=== PATIENT | female | born 1965 | race Asian ===

== ENCOUNTER 2024-07-05 09:52 | Outpatient (AMB) | payer OTHER, SELFPAY ==
--- NOTE | 2024-07-05 09:52 | MHC.OFFVIS ---
Vital Signs 07/05/24 10:04 Height 5 ft 2 in Weight 121 lb 11.123 oz BMI 22.3 BP 160/98 H Blood Pressure Location Lt radial Position Sitting Pulse 66 Pulse Source Pulse Oximeter Pulse Oximetry (%) 99 Oxygen Delivery Method Room Air Intake Visit Reasons: Hyperlipidemia, colo consult Intake Note: Alana presents in office today for a scheduled colo consult. CC; Pt denies any sx or concerns that would otherwise warrant a colonoscopy. Pt denies any previous hx of colo procedure. This will be an initial / routine colo. Paving Block Cutter Required: Yes Paving Block Cutter Services: Paving Block Cutter Offered & Declined Paving Block Cutter Name: Family Information Interpreted: non-clinical & clinical Accompanied by: Daughter Allergies No Known Allergies Allergy (Verified 07/05/24 10:03) Medication List - Last Reconciled 07/05/24 by ANSHUL Pozo multivitamin 1 tab PO DAILY HPI HPI Hyperlipidemia, colo consult: Details: 58 year old? female with past medical history of hyperlipidemia this here today for pre colonoscopy screening.? Patient was sent to us by her PCP.? This is her first colonoscopy screening.? Patient denies any gastrointestinal symptoms in the past or at present.? Denies any personal or family history of gastrointestinal disease, colon polyps, or CRC.? Denies history of difficulty with sedation or anesthesia in the past.? Negative for history of sleep apnea.? Denies any history of cardiac, renal, pulmonary, or hepatic disease.?? No history of infectious? diseases like hepatitis A, B, C, HIV or tuberculosis.? Patient is not on any anticoagulation PFSH Medical History (Updated 07/05/24 @ 10:27 by ANSHUL Pozo) Hyperlipidemia Surgical History (Updated 07/05/24 @ 10:01 by ANAYA De Paz) H/O: hysterectomy (~2021) Nose septum deviation (~02/2024) Family History (Updated 07/05/24 @ 10:02 by ANAYA De Paz) Brother Stroke Hypertension Father Stroke Social History Alcohol intake: never Patient Tobacco Use Status: Never used Tobacco Review of Systems Const Denies weight gain and Denies weight loss ENT Reports no additional complaints, Denies dysphagia and Denies odynophagia Card Reports no additional complaints Resp Reports no additional complaints GI Denies abdominal pain, Denies belching, Denies melena, Denies bloating, Denies change in bowel habits, Denies dysphagia, Denies excessive flatus, Denies dyspepsia, Denies heartburn, Denies diarrhea, Denies loose stools, Denies nausea, Denies odynophagia and Denies vomiting Musc Reports no additional complaints Neuro Reports no additional complaints Psych Reports no additional complaints Endo Reports no additional complaints Physical Exam Vital Signs: Last Vital Signs Pulse 66 07/05/24 10:04 BP 160/98 H 07/05/24 10:04 Pulse Ox 99 07/05/24 10:04 Oxygen Delivery Method Room Air 07/05/24 10:04 BMI result Body Mass Index 22.3 Const General: healthy appearing, no acute distress and well developed Nutritional Appearance: well nourished Orientation/consciousness: patient oriented x3 Resp Effort & Inspection: normal respiratory effort, able to speak in complete sentences, no tracheal deviation and symmetric chest movement Auscultation: clear to auscultation bilaterally Cardio Rate: regular rate GI Inspection: Yes normal to inspection and No distended Palpation (GI): Soft to palpation, not firm, nontender and No hepatosplenomegaly present Auscultation: normal bowel sounds General: Yes no CVA tenderness Back/Spine/Pelvis Back: no CVA tenderness Skin General skin exam: elasticity normal, turgor normal and dry skin Neuro General: patient oriented x3 Psych Appearance: grossly normal Mental Status: mental status grossly normal Assessment & Plan Assessment & Plan (1) Screen for colon cancer: Code(s): Z12.11 - Encounter for screening for malignant neoplasm of colon Plan Patient denies any GI, cardiac or respiratory symptoms.? Denies any issues with anesthesia in the past.? Denies any history of sleep apnea.? No history infectious diseases in the past or present.? Not on any anticoagulation therapy.? No family or personal history of colon cancer or polyps.? Patient denies melena, hematochezia, unintentional weight loss or ribbon like stools.? Discussed at length the pre-procedure,? prep, diet & medications as well as what to expect prior, during and after the procedure.?? Stressed the importance of good bowel prep.? Recommended the use of Vaseline or Calmoseptine OTC & baby wipes with bowel movements to promote comfort.? ?Patient verbalizes understanding and agrees to plan of care.? She was given the opportunity to ask questions and all questions answered.? We will see her after the procedure.? Medications: New bisacodyl (Dulcolax (bisacodyl)) take 4 tabs at noon the day before your colonoscopy 20 mg (4 x 5 mg) PO ONCE 1 day 4 tabs 0RF Z12.11 - Encounter for screening for malignant neoplasm of colon polyethylene glycol 3350 (Miralax) As directed by gastroenterology department at [facility] 238 grams PO ONCE 238 grams 0RF Z12.11 - Encounter for screening for malignant neoplasm of colon Coding Level of Care Code New Pt Level 3 (99912) Diagnoses Screen for colon cancer Z12.11 Time Spent (min) 40 Comment 30 minutes spent with patient and additional 10 minutes spent reviewing her records
[2024-07-05 10:04] VITALS: BP 160/98; PULSE 66; O2SAT 99; BMI 22.3
== END 2024-07-05 10:31 | disposition home or self-care (01) ==
PROVIDERS: PCP Hospitalist; Visit Provider Nurse Practitioner Family
DX: Z12.11 Encounter for screening for malignant neoplasm of colon (principal); Z01.818 Encounter for other preprocedural examination
CPT/HCPCS: 99203

== ENCOUNTER → 2024-07-05 09:52 | Outpatient (BNVA) | payer OTHER, SELFPAY | PROVIDERS: PCP Hospitalist; Visit Provider Nurse Practitioner Family ==

== ENCOUNTER 2024-12-05 10:06 | Day surgery (SDC) | payer OTHER, SELFPAY ==
[2024-12-01 13:46] VITALS: BMI 22.3
[2024-12-05 10:30] VITALS: BP 120/87; PULSE 83; RESP 18; TEMP 36.7; O2SAT 96
[2024-12-05] MEDS: Lactated Ringers 1,000 ML 80 ML IVCONT (10:33)
--- NOTE | 2024-12-05 10:40 | MHC.SHP ---
Pre-Procedural Eval Section A - 24 Hr Update-Section A only Date of Service: 12/05/24 Section B - Complete if H&P > 30 days Chief Complaint: Encounter for screening for malignant neoplasm of Details of Present Illness: Hyperlipidemia Surgical History (Updated 07/05/24 @ 10:01 by Emil[facility] Plasencia [facility] H/O: hysterectomy (~2021) Nose septum deviation (~02/2024) Present Medications: see Short Stay Collaborative assessment Allergies: Allergies Allergy/AdvReac Type Severity Reaction Status Date / Time No Known Allergies Allergy Verified 12/05/24 10:31 Review of Systems Review of Systems Comment: Ten point ROS negative Exam Exam Comment: Gen appear: No acute distress HEENT: no icterus Chest: No overt resp distress Abd: soft, nontender, nondistended Psych: Stable affect, answering questions appropriately Neuro: A/Ox3 noted to move all extremities spontaneously Ext: no peripheral edema Plan Diagnosis/Plan: Unchanged I have reviewed the history and physical and performed a pertinent physical examination on my patient. No changes have occurred unless specified. 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
--- NOTE | 2024-12-05 11:05 | P.CONAN_ITS ---
HPI - Anesthesia Eval Consult details Narrative: 59 F for colonoscopy FOR[facility]LY [facility] Past Medical History Medical History Seasonal allergic rhinitis Hyperlipidemia Family History Family History (Updated 07/05/24 @ 10:02 by ANAYA De Paz) Brother Stroke Hypertension Father Stroke Family history of problems with anesthesia: No Surgical History Surgical History H/O: hysterectomy (~2021) Nose septum deviation (~02/2024) History of Problems with Anesthesia: No Social History Social History (Updated 07/05/24 @ 10:02 by ANAYA De Paz) Are you a primary respiratory care program director to a significant other at home: No Do you presently have visiting nurse or other home services: No Alcohol intake: never Patient Tobacco Use Status: Never used Tobacco Have you been hit, kicked, punched, or otherwise hurt by someone within the past year? If so, by whom?: No Are you DNR?: No Advance Directives: No Advance Directives Information Provided: Yes Recently lost weight without trying: No Nutrition Risks: No Nutritional Risk Meds Allergies Allergy/AdvReac Type Severity Reaction Status Date / Time No Known Allergies Allergy Verified 12/05/24 10:31 Active Medications: Current Medications Lactated Ringer's (Lr) 1,000 mls @ 80 mls/hr IVCONT .[id number] Last Admin: 12/05/24 10:33 Dose: 80 mls/hr Home Medications ?Medication ?Instructions ?Recorded ?Confirmed ?Last Taken ?Type multivitamin 1 tab PO DAILY 07/05/24 12/05/24 Unknown History Exam Height,Weight and Vital Signs: Height 5 ft 2 in Weight 121 lb 11 oz Last Vital Signs Temp 98.1 F 12/05/24 10:30 Pulse 83 12/05/24 10:30 Resp 18 12/05/24 10:30 BP 120/87 12/05/24 10:30 Pulse Ox 96 12/05/24 10:30 O2 Del Method Room Air 12/05/24 10:30 Airway Mallampati Class: II TM Dist: >3cm Neck ROM: Full Loose/Missing/Broken Teeth: Yes Assessment and Plan Assessment Anesthesia Assessment: Anesthesia Plan Discussed and Chart Reviewed Final Anesthetic Review Family History of Problems with Anesthesia: No History of Problems with Anesthesia: No NPO: Yes ASA Class: II Final Preanesthetic Review: No Changes in Pt Med Stat, Meds/Allgs Chart Reviewed, Consent Obtained/Reviewed and Anes Risks/Benef Reviewed Patient Risk: Low Procedure Risk: Low Anesthetic Plan Anesthetic Plan: MAC: Disposition: Standard PACU
[2024-12-05 11:15] VITALS: BP 108/73; PULSE 76; RESP 16; TEMP 37.1; O2SAT 100
--- NOTE | 2024-12-05 11:15 | P.OPN-COLO_ITS ---
Colonoscopy Operative Note Operative Note Date of Service: 12/05/24 Narrative: Procedure: Colonoscopy Indication: Screening Endoscopist: Lore Mata MD Anesthesia Provider: Dr John Roper Anesthesia type: MAC Instrument: Olympus [id number]-[id number] Consent: Indication, risks vs benefits, and alternatives were discussed with the patient who gave written informed consent to proceed. A [place] per diem interpreter was utilized to assist with the consent. EKG, pulse, pulse oximetry and blood pressure were monitored throughout the procedure. Please see anesthesia flowsheet. Procedure: The patient was brought to the procedure room and placed in the left lateral decubitus position. IV medications were administered by the anesthesia provider in attendance. A digital rectal exam was performed which was normal. A distal attachment cap was affixed to the tip of the colonoscope which was then inserted through the anus and advanced through the colon to the cecum at 75 cm,and terminal ileum. Appendiceal orifice and ileocecal valve were identified. Mucosa was carefully examined under high definition white light as the instrument was slowly withdrawn in a retrograde panoramic fashion. Retroflexion was performed in rectum. The procedure was not difficult. There were no immediate obvious complications. The quality of the prep was BBPS: 3+2+3 = adequate Withdrawal time 7 minutes. Limitations: No limitations. Findings: Mucosa: Normal to cecum and terminal ileum. Protruding lesions: * 1 sessile polyp of size 8 mm in descending colon. Cold snare polypectomy was performed. The polyp was completely removed and retrieved. * 1 sessile polyp of size 5 mm in transverse colon. Cold snare polypectomy was performed. The polyp was completely removed and retrieved. * Medium internal hemorrhoids without stigmata of recent bleeding. Impression: 1. Normal colon mucosa 2. Total of 2 polyps removed 3. Internal hemorrhoids Recommendations: - Follow path results. - Repeat colonoscopy in 5-7 years if polyps are adenomas.
[2024-12-05 11:30] VITALS: BP 134/66; PULSE 64; RESP 20; TEMP 36.4; O2SAT 95
--- OUTSIDE RECORDS SUMMARY | 2024-12-05 12:00 | XMS_ITS ---
Author Organization [facility] Address [address] [place] [address] Care Team Providers Care Industrial Renderer Name Role Phone ANNE FOREMAN Unavailable [phone] Allergies No Known Allergies Reason For Referral Reason colonoscopy- [place] Diagnosis 1 Encounter for genera l adult medical examination without abnormal findings (Z00.00) Referral Organization [facility] Referring Provider First Name ANNE Referring Provider Last Name KELLEN Referring Provider Speciality Internal M edicine Referred Provider Specialty Gastroentero logy General Notes Referral faxed to [facility] Gastroenterology F: : [phone]. Please contact patient for scheduling Referral Priority Routine Medications Medication SIG (Take, Route, Frequency, Duration) Notes Start Date End Date Status Collagen Active Flonase Allergy Relief 50 MCG/ACT 1 spray in each nostril Nasally Once a day for 30 day(s) 01/20/2023 Not-Taking [place] 3 Active Levocetirizine Dihydrochloride 5 MG 1 tablet in the evening Orally Once a day for 30 day(s) 01/20/2023 Not-Taking Triamcinolone Acetonide 0.5 % 1 application Externally Twice a day for 30 days 01/25/2024 Active Social History Tobacco Use: Social History Observation Description Date Details (start date - stop date) Never Smoker NA - NA Tobacco Use/Smoking Question Answer Notes Are you a nonsmoker Alcohol Screen (Audit-C) Question Answer Notes Did you have a drink containing alcohol in the p ast year? No Points 0 Interpretation Negative Vital Signs Temperature 97.2 degrees Fahrenheit 01/25/20 Oximetry 96 % 01/25/2024 Heart Rate 86 /min 01/25/2024 Blood pressure systolic 122 mm Hg 01/25/20 24 Blood pressure diastolic 84 mm Hg 024 Weight 122.1 lbs 01/25/2024 Encounters Encounter Location Date Provider Diagnosis [facility] [address] [address] 01/25/2024 ANNE FOREMAN Mixed hyperlipidemia E78.2 ; Encounter for general adult medical examination without abnormal findings Z00.00 ; Other seasonal allergic rhinitis J30.2 and Dermatitis, unspecified L30.9 Assessments Encounter Date Diagnosis (ICD Code) Assessment Notes Treatment Notes Treatment Clinical Notes Section Notes 01/25/2024 Mixed hyperlipidemia (ICD-10 - E78.2) Mrs. Prescott is a 58 year old [place]alander-speakin g lady with hyperlipidemia here for annual physical. Plan is as follows: Mixed hyperlipidemia. Total cholesterol 206 and triglyceride 168. Dietary restrictions advised. Seasonal allergies. Continue Levocetirizine 5 MG daily and Flonase nasal spray. Dermatitis. Start Triamcinolone Acetonide Ointment twice a day. Eye screening. She sees her trial court justice regularly. Dental screening. She sees dentist regularly. Breast cancer screening. Ordered mammogram. Colon cancer screening. Referred to GI for colonoscopy. Immunizations. She is up-to-date on her COVID, TDAP and influenza vaccinations. Screening blood work before next appointment. General health concerns discussed with patient. Scribe services used to formulate this note under HIPAA compliance and under [place] law mandated for scribe services. Patient aware of service. Verbal consent and written consent taken from the patient. Patient understands and verbalizes understanding of the scribes services and all questions answered regarding scribes services. Patient agrees to use of scribes services. 01/25/2024 Encounter for general adult medical examination without abnormal findings (ICD-10 - Z00.00) Mrs. Prescott is a 58 year old [place] Zealander-speakin g lady with hyperlipidemia here for annual physical. Plan is as follows: Mixed hyperlipidemia. Total cholesterol 206 and triglyceride 168. Dietary restrictions advised. Seasonal allergies. Continue Levocetirizine 5 MG daily and Flonase nasal spray. Dermatitis. Start Triamcinolone Acetonide Ointment twice a day. Eye screening. She sees her trial court justice regularly. Dental screening. She sees dentist regularly. Breast cancer screening. Ordered mammogram. Colon cancer screening. Referred to GI for colonoscopy. Immunizations. She is up-to-date on her COVID, TDAP and influenza vaccinations. Screening blood work before next appointment. General health concerns discussed with patient. Scribe services used to formulate this note under HIPAA compliance and under [place] law mandated for scribe services. Patient aware of service. Verbal consent and written consent taken from the patient. Patient understands and verbalizes understanding of the scribes services and all questions answered regarding scribes services. Patient agrees to use of scribes services. 01/25/2024 Other seasonal allergic rhinitis (ICD-10 - J30.2) Mrs. Prescott is a 58 year old [place] Zealander-speakin g lady with hyperlipidemia here for annual physical. Plan is as follows: Mixed hyperlipidemia. Total cholesterol 206 and triglyceride 168. Dietary restrictions advised. Seasonal allergies. Continue Levocetirizine 5 MG daily and Flonase nasal spray. Dermatitis. Start Triamcinolone Acetonide Ointment twice a day. Eye screening. She sees her trial court justice regularly. Dental screening. She sees dentist regularly. Breast cancer screening. Ordered mammogram. Colon cancer screening. Referred to GI for colonoscopy. Immunizations. She is up-to-date on her COVID, TDAP and influenza vaccinations. Screening blood work before next appointment. General health concerns discussed with patient. Scribe services used to formulate this note under HIPAA compliance and under [place] law mandated for scribe services. Patient aware of service. Verbal consent and written consent taken from the patient. Patient understands and verbalizes understanding of the scribes services and all questions answered regarding scribes services. Patient agrees to use of scribes services. 01/25/2024 Dermatitis, unspecified (ICD-10 - L30.9) Mrs. Prescott is a 58 year old [place] Zealander-speakin g lady with hyperlipidemia here for annual physical. Plan is as follows: Mixed hyperlipidemia. Total cholesterol 206 and triglyceride 168. Dietary restrictions advised. Seasonal allergies. Continue Levocetirizine 5 MG daily and Flonase nasal spray. Dermatitis. Start Triamcinolone Acetonide Ointment twice a day. Eye screening. She sees her trial court justice regularly. Dental screening. She sees dentist regularly. Breast cancer screening. Ordered mammogram. Colon cancer screening. Referred to GI for colonoscopy. Immunizations. She is up-to-date on her COVID, TDAP and influenza vaccinations. Screening blood work before next appointment. General health concerns discussed with patient. Scribe services used to formulate this note under HIPAA compliance and under [place] law mandated for scribe services. Patient aware of service. Verbal consent and written consent taken from the patient. Patient understands and verbalizes understanding of the scribes services and all questions answered regarding scribes services. Patient agrees to use of scribes services. Plan Of Treatment Medication Medication Name Sig Start Date Stop Date Notes Triamcinolone Acetonide 0.5 % 1 applicat ion Externally Twice a day for 30 days 01/25/2024 Future Test Test Name Order Date MAMMOGRAM, SCREENING 01/25/2024 Lipid Panel-[id number] 01/25/2024 Comp. Metabolic Panel [id number] 2023 Referrals Referral Date Details 01/25/2024 01/25/2024, colonosc opandrew- [facility] Next Appt Details Follow Up: 1 Year- Shikha POOL n: Provider Name:ANNE FOREMAN , 01/25/2025 03:30:00 PM, [address] [place] [address], [phone], Progress Notes * GENIE BRANDON WHEELERDOB:[birth year] (58 yo F)Acc No.[id number]:01/25/2024 Progress Notes Patient:?GENIE BRANDON WHEELER Provider:?ANNE FOREMAN MD :1965???Age:58 Y???Sex:Female D ate:01/25/2024 Address:[address] [place] [id number] Subjective: * Chief Complaints: * ??? * HPI: ???Internal Medicine:? Mrs. Prescott is a 58 year old [place]ander-speaking lady with hyperlipidemia here for annual physical. Vision and hearing are stable. She is physically active and walks as much as she can. She gained 3 lbs since last visit. She does not appear anxious or depressed. She sleeps well, appetite is good. No GI or symptoms. She denies any other active issues or concerns. * ROS:?General/Constitutional:?Overall health?Good.?Change in appetite?denies.?Chills?denies.?Fever?denies.?Night sweats?denies.?Sleep disturbance?denies.?Weight gain?denies.?Weight loss?denies.?Neurologic:?Difficulty speaking?denies.?Dizziness?denies.?Gait abnormality?denies.?Headache?denies.?Loss of strength?denies.?Memory loss?denies.?Seizures?denies.?Tingling/Numbness?denies ?.?Ophthalmologic:?Blurred vision?denies.?Discharge?denies.?Dry eye?denies.?Red eye?denies.?ENT:?Change in Voice?Denies.?Cold Symptoms?Denies.?Cough?Denies.?Dizziness?Denies.?Nasal Congestion?Denies.?Otalgia?Denies.?postnasal drip?, Denies.?Blocked ear?denies.?Nosebleed?denies.?Snoring?denies.?Cardiovascular:?Diaphoresis?Denies.?Pedal Edema?Denies.?PND (Paroxsymal nocturnal dyspnea)?Denies.?Chest pain?denies.?Difficulty laying flat?denies.?Dyspnea on exertion?denies.?Heart murmur?denies.?Orthopnea?denies.?Respiratory:?Snoring?denies.?Asthma?denies.?Cough?denies.?Shortness of breath with exertion?denies.?Sputum production?denies.?Wheezing?denies.?Gastrointestinal:?Change in bowel habits?denies.?Constipation?denies.?Decreased appetite?denies.?Diarrhea?denies.?Heartburn?, denies.?Nausea?denies.?Vomiting?denies.?Musculoskeletal:?tingling/numbness?Denies.?myalgias?Denies.?Joint Swelling?Denies.?extremeties?normal.?Arthritis?denies.?Back problems?denies.?Carpal tunnel?denies.?Joint stiffness?denies.?Muscle aches?denies.?Endocrine:?Bowel Changes?Denies.?Breast Discharge?Denies.?poor libido?Denies.?Cold intolerance?denies.?Excessive sweating?denies.?Excessive thirst?denies.?Frequent urination?denies.?Thyroid problems?denies.?Skin:?Bruising?Denies.?Eczema?denies.?Hair changes?denies.?Rash?,admits.?Skin lesion(s)?denies.?Psychiatric:?Anxiety?denies.?Depressed mood?denies.?Difficulty sleeping?denies.?Nervous breakdown?denies.?Substance abuse?denies.?Urology:?abnormal menstrual bleeding?denies.?blood in urine?denies.?burning on urination?denies.?difficulty urinating?denies.?discharge?denies.?dysuria?denies.? * Medical History:? * Surgical History:?uterine fi broid * Hospitalization/Major Diagno stic Procedure:?Denies Past Hospitalization * Family History:?Father: diag nosed with Hypertension, Stroke.?Siblings: diagnosed with Hypertension, Stroke.? * Social History:?Tobacco Use:?Tobacco Use/Smoking?Are you a?nonsmoker ???Drugs/Alcohol:?Alcohol Screen (Audit-C)?Did you have a drink containing alcohol in the past year??No ?Points?0 ?Interpretation?Negative ?Do you smoke marijuana?: no. ???Miscellaneous:?Children: 3. ?Exercise: no. ?Marital status: . 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 * Medications:?TakingCollagen [place] 3 Taking Collagen Taking [place] 3 Not- TakingFlonase Allergy Relief 50 MCG/ACT Suspension 1 spray in each nostril Nasally Once a day Levocetirizine Dihydrochloride 5 MG Tablet 1 tablet in the evening Orally Once a day Medication List reviewed and reconciled with the patientNot-Taking Flonase Allergy Relief 50 MCG/ACT Suspension 1 spray in each nostril Nasally Once a day Not- Taking Levocetirizine Dihydrochloride 5 MG Tablet 1 tablet in the evening Orally Once a day Medication List reviewed and reconciled with the patient * Allergies:?N.K.D.A.no[Allerg ies Verified] Objective: * Vitals:?Temp:97.2F, Oxygen s at %:96%, HR:86/min, BP:122/84mm Hg, Wt:122.1lbs. * ???Past Orders: ???Lab:COMPREHENSIVE METABOL IC PANEL (Order Date - 11/20/2022) (Collection Date & Time - 11/20/2022 09:15 AM) ? Value Reference Range ?ALBUMIN 4.2 (3.4-4.8) - GM/DL ?ALK PHOS 102 (35-104) - U/L ?BILIRUBIN,TOTAL 0.2 (0-1 .2) - MG/DL ?CALCIUM 9.6 (8.6-10.5) - MG/DL ?BICARBONATE 28 (22-29) - MMOL/L ?CHLORIDE 106 (98-107) - MMOL/L ?EST GFR NON 99 - ML/MIN/1.73 M2 ?CREATININE 0.7 (0.5-1.0) - MG/DL ?ANION GAP 8 (4-17) - ?GLUCOSE 90 (70-99) - MG /DL ?AST 16 (0-32) - U/L ?ALT 13 (0-33) - U/L ?POTASSIUM 4.7 (3.6-5.2) - MMOL/L ?SODIUM 142 (133-145) - M MOL/L ?TOTAL PROTEIN 7.0 (6.2-8 .2) - GM/DL ?BUN 14 (6-20) - MG/DL ?AG RATIO 1.5 - ???Lab:LIPID PANEL (Order Da te - 11/20/2022) (Collection Date & Time - 11/20/2022 09:15 AM) ? Value Reference Range ?LDL CHOLESTEROL, CALCULATED 117 (0-130) - MG/DL ?CHOLESTEROL, TOTAL 206 H ( <200) - MG/DL ?HDL CHOL 55 (>39) - MG/ DL ?NON HDL CHOLESTEROL (CALC) 151 (<160) - MG/DL ?TRIGLYCERIDE 168 H (<150) - MG/DL * Examination: ???General Examination: ?Psychiatry?Normal.?GENERAL APPEARANCE:?Well developed, well nourished, in no acute distress.?MUSCULOSKELETAL:?right fifth digit slightly curved due to work injury.?HEAD:?Normocephalic, atraumatic.?EYES:?Pupils equal, round, reactive to light and accommodation, sclera non-icteric.?EARS:?Normal.?ORAL CAVITY:?Normal.?THROAT:?Clear.?OROPHARYNX?Normal.?SINUSES?Normal.?NECK/THYROID:?Neck supple, full range of motion, no cervical lymphadenopathy.?SKIN:?Warm and dry, no suspicious lesions.Dry rash left ankle joint.?HEART:?Normal.?LUNGS:?Normal.?BREASTS:?__.?ABDOMEN:?Soft, nontender, nondistended, bowel sounds present, normal.?EXTREMITIES:?Normal.?PERIPHERAL PULSES:?Normal.?NEUROLOGIC:?Nonfocal,? appropriate?motor strength normal upper and lower extremities, sensory exam intact.?FEMALE GENITOURINARY:?__.?MALE GENITOURINARY:?__.?PODIATRIC:?Normal.?Hand Flatwork Finisher? .? Assessment: * Assessment: 1.?Encounter for general virgilio lt medical examination without abnormal findings - Z00.00 (Primary)?2.?Mixed hyperlipidemia - E78.2?3.?Other seasonal allergic rhinitis - J30.2?4.?Dermatitis, unspecified - L30.9? Mrs. Prescott is a 58 year old Vi etnamese-speaking lady with hyperlipidemia here for annual physical. Plan is as follows: Mixed hyperlipidemia. Total cholesterol 206 and triglyceride 168. Dietary restrictions advised. Seasonal allergies. Continue Levocetirizine 5 MG daily and Flonase nasal spray. Dermatitis. Start Triamcinolone Acetonide Ointment twice a day. Eye screening. She sees her trial court justice regularly. Dental screening. She sees dentist regularly. Breast cancer screening. Ordered mammogram. Colon cancer screening. Referred to GI for colonoscopy. Immunizations. She is up-to-date on her COVID, TDAP and influenza vaccinations. Screening blood work before next appointment. General health concerns discussed with patient. Scribe services used to formulate this note under HIPAA compliance and under [place] law mandated for scribe services. Patient aware of service. Verbal consent and written consent taken from the patient. Patient understands and verbalizes understanding of the scribes services and all questions answered regarding scribes services. Patient agrees to use of scribes services. Plan: * Treatment: 2.?Mixed hyperlipidemia?LAB: Comp. Metabolic Panel [id number] (Ordered for 01/25/2024) ?LAB: Lipid Panel-[id number] (Ordered for 01/25/2024) 3.?Dermatitis, unspecified? Start Triamcinolone Acetonide Ointment, 0.5 %, 1 application, Externally, Twice a day, 30 days, 1, Refills 3.?? 4.?Others? Referral To:Gastroenterology ?Reason:colonoscopy- [place] * Procedure Codes:? * Preventive Medicine:?COVID - YES FLU - YES TDAP - 2018 MAMMOGRAM - 2021. * Follow Up:?1 Year- AW * Images: * Sign off status: Completed true * Provider:?ANNE FOREMAN MD Date:?01/24 Generated for Georgia flynn/Roseanne/eTransmitting on:?12/05/2024 11:59 AM EST History and Physical Notes * HPI (History of Present Illness) Category Sub-Category Detail Notes Category Not es Internal Medicine Mrs. Genie nolan s a 58 year old [place] Zealander-speaking lady with hyperlipidemia here for annual physical. Vision and hearing are stable. She is physically active and walks as much as she can. She gained 3 lbs since last visit. She does not appear anxious or depressed. She sleeps well, appetite is good. No GI or symptoms. She denies any other active issues or concerns. Examination Category Sub-Category Detail Notes Category Not es General Examination GENERAL APPEARANCE: Well dev eloped, well nourished, in no acute distress HEAD: Normocephalic, atrau matic EYES: Pupils equal, round, reactive to light and accommodation, sclera non-icteric EARS: Normal THROAT: Clear NECK/THYROID: Neck supple, full ra nge of motion, no cervical lymphadenopathy HEART: Normal LUNGS: Normal ABDOMEN: Soft, nontender, non distended, bowel sounds present, normal NEUROLOGIC: Nonfocal, appropriat e motor strength normal upper and lower extremities, sensory exam intact SKIN: Warm and dry, no simone picious lesions. Dry rash left ankle joint EXTREMITIES: Normal PERIPHERAL PULSES: Normal BREASTS: __ MUSCULOSKELETAL: right fifth digit sl ightly curved due to work injury MALE GENITOURINARY: __ FEMALE GENITOURINARY: __ ORAL CAVITY: Normal PODIATRIC: Normal Psychiatry Normal OROPHARYNX Normal SINUSES Normal Hand Flatwork Finisher Consultation Request Notes Referral Date Referring Provider Referred Provider Not 01/25/2024 ANNE FOREMAN , colonoscopy- [place]
--- OUTSIDE RECORDS SUMMARY | 2024-12-05 12:00 | XMS_ITS ---
Author Organization [facility] Address [address] [place] [address] Care Team Providers Care Cold Roll Packer Sheet Iron Name Role Phone ANNE FOREMAN Unavailable [phone] REASON FOR VISIT Needs info faxed Encounters Encounter Location Date Provider Diagnosis [address] [place] [address] 01/28/2024 ANNE FOREMAN Plan Of Treatment Next Appt Details Provider Name:ANNE FOREMAN , 01/25/2025 03:30:00 PM, [address], [place], [address], Progress Notes * BRANDON PRESCOTTDOB:[birth year] (58 yo F)Acc No.[id number]:01/28/2024 Patient:?GENIE BRANDON WHEELER :1965???Age:58 Y???Sex:Female Address: [place] [address] * true * Date:? Generated for Printi gee/Roseanne/eTransmitting on:?12/05/2024 11:59 AM EST
--- OUTSIDE RECORDS SUMMARY | 2024-12-05 12:00 | XMS_ITS | Clinical Summary ---
Author Organization [facility] Address [address] [place] [address] Care Team Providers Care Hogshead Stripper Name Role Phone Marlene Stafford DMD Primary Care Provider [phone] Source Comments PLEASE NOTE, if this patient is a minor, it may be UNLAWFUL to discuss sensitive information that is contained in these records (such as FAMILY PLANNING, MENTAL HEALTH or SUBSTANCE ABUSE) with the minor patient's parent or other person without the patient's specific authorization.[facility] Medications clindamycin HCL (CLEOCIN) 150 mg capsuleIndicatio ns:Tooth infection Take 1 Cap by mouth 3 (three) times daily 21 Cap 05/01/2020 Active chlorhexidine gluconate (PERIDEX) 0.12 % solutionIndicati ons:Gingival swelling Swish and spit 15 mL 2 (two) times daily 473 mL 05/01/2020 Active Immunizations Name Administration Dates Next Due Moderna COVID-19 Vaccine, re d cap blue label, 12+ Primary Series 02/12/2021,01/15/2021 Social History Tobacco Use Types Packs/Day Years Used Date Smoking Tobacco: Never Assessed Social Connections Answer Date Recorded Social Connections and Isolation 0 03/02/2024 Financial Resource Strain Answer Date R ecorded Financial Resource Strain 0 2023 Stress Answer Date Recorded Stress 0 03/02/2024 Physical Activity Answer Date Recorded Physical Activity 0 03/02/2024 Food Insecurity Answer Date Recorded Food 0 03/02/2024 Transportation Needs Answer Date Record ed Transportation 0 03/02/2024 Housing Stability Answer Date Recorded Housing 0 03/02/2024 Safety and Environment Answer Date Marco Antonio rded Safety 0 03/02/2024 Utilities Answer Date Recorded Utilities 0 03/02/2024 Employment Answer Date Recorded Employment 0 03/02/2024 Comments Unknown Sex and Gender Information Value Date Recorded Sex Assigned at Not on file Legal Sex Female 6:00 AM PDT Gender Identity Not on file Sexual Orientation Not on file Plan of Treatment Health Maintenance Due Date Last Done Comments Diabetes Screening 1965 HPV Screening 1965 Hepatitis C Screening 1965 Lipid Screening 1965 Pap + HPV 1965 Tobacco Screening 1964 HIV Screening 1979 Annual Preventive Care Visit 1982 Hypertension Screening (#1) 1982 Imm-DTaP/Tdap/Td (1 - Tdap) 1983 Cervical Cancer Screening 1985 Pap Smear 1985 Breast Cancer Screening (Mammogram) 2004 CT Colonography 2009 Colonoscopy 2009 Colorectal Cancer Screening 2009 FIT/gFOBT 2009 Fecal DNA 2009 Flexible Sigmoidoscopy 2009 Imm-Zoster, Recombinant (1 o f 2) 2014 Alcohol and Drug Screen 10/04/2023 Depression Annual Screen 10/04/2023 [id number] ( season) 2024 02/12/2021, 01/15/2021 Imm-Influenza (#1) 2024 Cervical Ablation/Cold-Knife Conization Discontinued Cervical Cryotherapy Discontinued Colposcopy Discontinued Endometrial Biopsy Discontinued Excision/Leep Discontinued HPV Genotyping Discontinued Imm-Hepatitis B Aged Out No longer el igible based on patient's age to complete this topic Vaginal Pap Discontinued Vulvoscopy Discontinued Insurance [facility] SAFETY NET DENTAL SAFETY NET CIGNA Care Teams Hogshead Stripper Relationship Specialty Start Date End Date Marlene Stafford DMD [address] [place] [address] PCP - General 12/13/20
== END 2024-12-05 11:40 | disposition home or self-care (01) ==
PROVIDERS: Visit Provider Internal Medicine
PROC: 0DJD8ZZ Inspection of Lower Intestinal Tract, Via Natural or Artificial Opening Endoscopic (ICD-10-PCS; CPT 45378; principal; 2024-12-05 09:40)
DX: Z12.11 Encounter for screening for malignant neoplasm of colon (principal); D12.3 Benign neoplasm of transverse colon; D12.4 Benign neoplasm of descending colon; K64.8 Other hemorrhoids; E78.5 Hyperlipidemia, unspecified; Z98.890 Other specified postprocedural states
CPT/HCPCS: 45385; 88305; J2003; J2704

== ENCOUNTER → 2024-12-05 10:06 | Outpatient (BNV) | payer OTHER, SELFPAY | PROVIDERS: Visit Provider Internal Medicine | DX: Z12.11 Encounter for screening for malignant neoplasm of colon (principal); D12.3 Benign neoplasm of transverse colon; D12.4 Benign neoplasm of descending colon; K64.8 Other hemorrhoids | CPT/HCPCS: 45385 ==